=== PATIENT | female | born 1970 | race Caucasian/White ===

== ENCOUNTER → 2017-11-28 | Outpatient (CLI) | payer BC, OTHER ==
--- NOTE | 2017-11-29 09:36 | CT ---
EXAMINATION TYPE: CT soft tissue neck w con DATE OF EXAM: 11/28/2017 HISTORY: Lump on right/anterior side of neck. BB placed on point of interest. COMPARISON: NONE CT DLP: 518 mGycm. Automated Exposure Control for Dose Reduction was Utilized. TECHNIQUE: CT scan of the neck is performed with IV Contrast, patient injected with 100ml mL of Isov ue M300, axial images are obtained, coronal and sagittal reformatted images are reviewed. FINDINGS: A metallic BB is placed at level of palpable abnormality in the right neck axial image 39 submandibul ar level just below hyoid bone and above vocal cords. No worrisome solid or cystic mass or abnormal f luid collection is seen at this level. Airway: There is mild to moderate biapical scarring and bleb formation. Parotid/submandibular glands: Right parotid gland is slightly asymmetrically anteriorly shifted of un certain significance. Submandibular glands are symmetric and unremarkable, inferior portion of right submandibular gland noted at level of palpable abnormality right neck. Carotid/Vascular Structures: No significant plaque or stenosis at the carotid bulb level bilaterally Osseous Structures: There is prominent dextroconvex scoliosis centered in the mid thoracic spine. The re is reversal of normal cervical curvature centered C5-C6 level in the mid to lower cervical spine. There is moderate disc space narrowing and spurring C5-C6 and C6-C7 levels. Other: There are scattered subcentimeter lymph nodes throughout the neck bilaterally. No cyst is grea ter than 1 cm neck adenopathy is identified. IMPRESSION: No suspicious mass, fluid collection, or adenopathy identified in the right neck at leve l of palpable abnormality.
== END | disposition home or self-care (01) ==
LOC: RADCTMAIN 18:27
PROVIDERS: ATTEND Family Medicine
DX: R22.1 Localized swelling, mass and lump, neck (principal)
CPT/HCPCS: 70491; Q9967

== ENCOUNTER → 2018-03-31 | Outpatient (CLI) | payer BC, OTHER ==
--- NOTE | 2018-03-31 13:31 | CT ---
EXAMINATION TYPE: CT lumbar spine wo con DATE OF EXAM: 03/31/2018 1:20 PM COMPARISON: None HISTORY: Herniated lumbar disc per order. Back pain down left leg per patient. CT DLP: 875 mGycm Automated exposure control for dose reduction was used. Unenhanced CT of the lumbar spine was performed. Bone and soft tissue window settings are submitted as well as coronal and sagittal reconstructions. 5 lumbar type vertebra identified. Lumbar spine shows levoconvex scoliosis centered at L3 level witho ut evidence of acute fracture or dislocation. There is moderate disc space narrowing and vacuum disc phenomenon at L5-S1 level. Posterior calcified disc herniation is seen at this level on sagittal imag es. There is additional mild multilevel disc space narrowing with relative sparing of L4-L5 level. Mi nimal multilevel anterior spurring is seen in the mid to lower lumbar spine. Axial images at T12-L1, and L1-L2 levels are felt within normal limits. Axial images at L2-L3 and L3-L4 levels show mild broad disc bulges, there is minimal effacement of an terior thecal sac at L3-L4 level. There is mild right greater than left bilateral anterior inferior n eural foraminal narrowing at L3-L4 level. Axial images at the L4-L5 level show mild facet degenerative changes bilaterally with mild broad-base d posterior disc protrusion, there is minimal effacement of the anterior thecal sac. Bilateral neural foramina are patent. Axial images at L5-S1 level show mild to moderate facet degenerative changes bilaterally. There is le ft paracentral calcified disc protrusion. Spinal canal is preserved. Left-sided neural foramina shows mild to moderate narrowing. Right-sided neural foramen is patent. No suspicious incidental retroperitoneal findings are seen. IMPRESSION: Levoconvex scoliosis with multilevel degenerative changes in the mid to lower lumbar spin e as detailed above, asymmetric left sided sided neural foraminal narrowing noted L5-S1 level due to eccentric disc herniation.
== END ==
LOC: RADCTMAIN 12:49
PROVIDERS: ATTEND Family Medicine
DX: M99.74 Connective tissue and disc stenosis of intervertebral foramina of sacral region (principal); M51.27 Other intervertebral disc displacement, lumbosacral region; M47.817 Spondylosis without myelopathy or radiculopathy, lumbosacral region; M41.87 Other forms of scoliosis, lumbosacral region
CPT/HCPCS: 72131

== ENCOUNTER 2018-12-17 20:24 | Emergency (ER) | payer BC, OTHER ==
[2018-12-17] MEDS ORDERED: DIAZEPAM 5 MG/ML 2 ML INJ IM ONE (21:03)
[2018-12-17] MEDS ORDERED: MORPHINE SULFATE 4 MG/ML SYRINGE IVP STA (21:12)
[2018-12-17] MEDS ORDERED: DIAZEPAM 5 MG/ML 2 ML INJ IVP STA (21:12)
--- NOTE | 2018-12-17 21:16 | ED ---
General Adult HPI - General Chief complaint: Neck Pain/Injury Stated complaint: back injury Time Seen by Provider: 12/17/18 21:00 Source: patient Mode of arrival: ambulatory Limitations: no limitations - History of Present Illness Initial comments: Patient is a 48-year-old female presenting to the emergency department with a chief complaint of back pain. Patient reports on Tuesday she slipped and fell in the bathtub and felt a "crack" in the lower back. 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 Patient reports today she took a Tylenol 3 at 0800. Patient also reports taking energy milligrams of ibuprofen 2 hours ago and it Flexeril at noon. Patient reports another medication is helping with the pain. Patient reports the pain is in the left lumbosacral region and radiates along the posterior aspect of the left leg to the calf. Patient denies any numbness or tingling. Patient denies any saddle paresthesia, urinary or bowel incontinence. No red flecks. - Related Data Home Medications Medication Instructions Recorded Confirmed Ranitidine HCl [Zantac] 150 mg PO BID PRN 08/16/14 12/17/18 Acetaminophen-Codeine 300-30mg 1 tab PO Q6H PRN 12/17/18 12/17/18 [Tylenol w/codeine #3] Cyclobenzaprine [Flexeril] 10 mg PO BID PRN 12/17/18 12/17/18 Previous Rx's Medication Instructions Recorded HYDROcodone/APAP 10-325MG [[place] 1 tab PO Q6HR PRN 3 Days #11 tab 12/17/18 10-325] Allergies Allergy/AdvReac Type Severity Reaction Status Date / Time No Known Allergies Allergy Verified 12/17/18 21:22 Review of Systems ROS Statement: Those systems with pertinent positive or pertinent negative responses have been documented in the HPI. ROS Other: All systems not noted in ROS Statement are negative. Past Medical History Past Medical History: GERD/Reflux Additional Past Medical History / Comment(s): kidney stones History of Any Multi-Drug Resistant Organisms: None Reported Past Surgical History: No Surgical Hx Reported Additional Past Anesthesia/Blood Transfusion Reaction / Comment(s): no family problems w/anesthesia Past Psychological History: No Psychological Hx Reported Smoking Status: Current every day smoker - Past Family History Mother Family Medical History: Cancer General Exam Limitations: no limitations Course Vital Signs 12/17/18 12/17/18 20:42 23:33 Temperature 98.6 F 98 F Pulse Rate 111 H 78 Respiratory 123 H 18 Rate Blood Pressure 123/79 112/77 O2 Sat by Pulse 98 98 Oximetry Medical Decision Making - Medical Decision Making Patient is a 40-year-old female presenting to emergency Department with a chief complaint of back pain. No cauda equina. No red flags. CT of the lumbar spine is indicative of mild spondylitic changes but no acute fractures or dislocations were detected. Patient was given Valium and morphine. Patient reports the pain has decreased to about a 7 and she is able to ambulate although it is still painful. Patient advised to follow-up with activity specialist for further management. Patient will be discharged with less than 3 days of [place]. Patient advised about the potential side effects of medication and side the left [place] paperwork. Strict return parameters were thoroughly discussed with patient reports understanding and agreeable. Case discussed with physician. Disposition Clinical Impression: Low back pain Disposition: HOME SELF-CARE Condition: Stable Instructions (If sedation given, give patient instructions): Low Back Strain (ED), Back Pain (ED) Additional Instructions: Please take prescribed medication as directed. Please follow up with orthopedics. Please return to emergency department if symptoms worsen. Prescriptions: HYDROcodone/APAP 10-325MG [[place] 10-325] 1 tab PO Q6HR PRN 3 Days #11 tab PRN Reason: Pain Is patient prescribed a controlled substance at d/c from ED?: Yes If prescribed controlled substance>3 days was MAPS reviewed?: Prescribed <3 Days Referrals: Morris Hannah MD [Primary Care Provider] - 1-2 days Dimitri Momin MD [STAFF PHYSICIAN] - 1-2 days Time of Disposition: 23:13
--- NOTE | 2018-12-17 22:08 | CT ---
EXAMINATION TYPE: CT lumbar spine wo con DATE OF EXAM: 12/17/2018 9:56 PM COMPARISON: 03/31/2018 HISTORY: PT c/o lower back pain since fall on Tuesday. Pt slipped in bathroom, tweaked her back, said she felt something pop. Pt states she has hx of scoliosis and herniated disc in lumbar region CT DLP: 850.1 mGycm Automated exposure control for dose reduction was used. Unenhanced CT of the lumbar spine was performed. Bone and soft tissue window settings are submitted as well as coronal and sagittal reconstructions. There is a mild lumbar levoscoliosis. Disc spaces are fairly normal. There is vacuum disc at L5-S1. T here is no compression fracture seen. Posterior elements are intact. There is no lumbar paraspinal ma ss. Sacroiliac joints are intact. I see no bony destructive process. There is calcified posterior jaida tral disc herniation at L5-S1 without significant encroachment on the spinal canal. There is no sign of spinal stenosis. IMPRESSION: Mild spondylotic changes. Mild levoscoliosis. No fracture seen. No change compared to old exam.
[2018-12-17 23:34] VITALS: BP 112/77; PULSE 78; RESP 18; TEMP 98
== END 2018-12-17 23:48 | disposition home or self-care (01) ==
LOC: EC 20:24
DX: M54.5 Low back pain (principal); K21.9 Gastro-esophageal reflux disease without esophagitis; F17.200 Nicotine dependence, unspecified, uncomplicated; W01.0XXA Fall on same level from slipping, tripping and stumbling without subsequent striking against object, initial encounter; Y93.E1 Activity, personal bathing and showering; Y92.002 Bathroom of unspecified non-institutional (private) residence as the place of occurrence of the external cause
CPT/HCPCS: 72131; 99283; 96374; 96375; J2270; J3360

== ENCOUNTER → 2018-12-26 | Outpatient (CLI) | payer BC, OTHER ==
--- NOTE | 2018-12-26 16:01 | XR ---
EXAMINATION TYPE: XR chest 2V DATE OF EXAM: 12/26/2018 COMPARISON: 02/23/2012 TECHNIQUE: PA and lateral views submitted. HISTORY: Scoliosis of the spine FINDINGS: The lungs are clear and there is no pneumothorax, pleural effusion, or focal pneumonia. Scoliotic c urvature of the spine. No overt failure. IMPRESSION: 1. No acute process.
[2018-12-26 16:12] LABS: Basophils # (A) 0.1 k/uL (0-0.2); Basophils % (A) 1 %; Eosinophils # (A) 0.1 k/uL (0-0.7); Eosinophils % (A) 1 %; HCT 46.5 % (34.0-46.0); HGB 15.6 gm/dL (11.4-16.0); Lymphocytes # (A) 2.5 k/uL (1.0-4.8); Lymphocytes % (A) 22 %; MCHC 33.5 g/dL (31.0-37.0); MCV 92.7 fL (80.0-100.0); Mean Platelet Volume 7.2; Monocytes # (A) 0.6 k/uL (0-1.0); Monocytes % (A) 6 %; Neutrophils # (A) 7.9 k/uL (1.3-7.7); Neutrophils % (A) 69 %; Platelet Count 280 k/uL (150-450); RBC 5.02 m/uL (3.80-5.40); RDW 14.5 % (11.5-15.5); WBC 11.4 k/uL (3.8-10.6)
[2018-12-26 16:14] LABS: Appearance,Urine Clear (Clear); Bacteria,Urine Rare /hpf; Bilirubin,Urine Negative (Negative); Blood,Urine Small (Negative); Color,Urine Yellow; Glucose,Urine (UA) Negative (Negative); Ketones,Urine Negative (Negative); Leukocyte Esterase,Urine Negative (Negative); Mucus,Urine Rare /hpf; Nitrite,Urine Negative (Negative); Protein,Urine Negative (Negative); RBC,Urine 2 /hpf (0-5); Specific Gravity,Urine 1.017 (1.001-1.035); Squamous Epithelial Cell,Urine 4 /hpf (0-4); Urobilinogen,Urine <2.0 mg/dL (<2.0); WBC,Urine 1 /hpf (0-5)
[2018-12-26 16:21] LABS: African American GFR (CKD) >90 (>60 ml/min/1.73 sqM); Anion Gap 10 mmol/L; Blood Urea Nitrogen 16 mg/dL (7-17); Calcium 10.1 mg/dL (8.4-10.2); Carbon Dioxide 26 mmol/L (22-30); Chloride 103 mmol/L (98-107); Glucose 97 mg/dL (74-99); INR 0.9 (<1.2); Partial Thromboplastin Time 24.2 sec (22.0-30.0); Prothrombin Time 10.2 sec (9.0-12.0); Sodium 139 mmol/L (137-145)
== END | disposition home or self-care (01) ==
LOC: LABPAT 15:19
PROVIDERS: ATTEND Orthopaedic Surgery Orthopaedic Surgery of the Spine
DX: Z01.818 Encounter for other preprocedural examination (principal); M51.27 Other intervertebral disc displacement, lumbosacral region; Z01.812 Encounter for preprocedural laboratory examination
CPT/HCPCS: 36415; 71046; 80048; 81001; 85025; 85610; 85730; 86850; 86900; 86901

== ENCOUNTER 2018-12-27 10:56 | Day surgery (SDC) | payer BC, OTHER ==
[~2018-12-27 10:56] MED LIST: BACITRACIN 50,000 UNIT, POLYMYXIN B 500,000 UNIT in SODIUM CHLORIDE 0.9% IRRIGATIO 1,00... IRRIGATION ONE
[2018-12-27] MEDS ORDERED: LIDOCAINE 1% 20 ML VIAL (10MG/ML) FOR IV START INTRADERMA ONE (11:33)
[2018-12-27] MEDS ORDERED: LACTATED RINGERS 1,000 ML IV ONE ×2 (11:33→14:09)
[2018-12-27] MEDS ORDERED: fentaNYL (PF) 50 MCG/ML 2 ML AMP IV ONE (12:06)
[2018-12-27] MEDS ORDERED: MIDAZOLAM (PF) 2 MG/2 ML VIAL IVP ONE (12:07)
[2018-12-27] MEDS ORDERED: ONDANSETRON 4 MG/2 ML VIAL IVP ONE (12:07)
[2018-12-27] MEDS ORDERED: LIDOCAINE 1% INJ 10MG/ML (20 ML MDV) ONE (12:15)
[2018-12-27] MEDS ORDERED: GLYCOPYRROLATE 0.2 MG/ML 2 ML VIAL ONE (12:15)
[2018-12-27] MEDS ORDERED: PROPOFOL 10 MG/ML 20 ML VIAL IV ONE (12:15)
[2018-12-27] MEDS ORDERED: MIDAZOLAM 2 MG/2 ML VIAL ONE (12:15)
[2018-12-27] MEDS ORDERED: PHENYLEPHRINE-0.9% NACL SYG 1 MG/10 ML SYRINGE ONE (12:15)
[2018-12-27] MEDS ORDERED: SUCCINYLCHOLINE CHLORIDE 100 MG/5 ML SYR IV ONE (12:15)
[2018-12-27] MEDS ORDERED: fentaNYL (PF) 50 MCG/ML 2 ML AMP ONE (12:15)
[2018-12-27] MEDS ORDERED: BUPIVACAIN-EPI 0.25%-1:200,000 30 ML VIAL SQ ONE (13:41)
[2018-12-27] MEDS ORDERED: methylPREDNISolone ACETATE 80 MG/ML 1 ML VIAL INJ ONE (13:41)
[2018-12-27] MEDS ORDERED: THROMBIN (BOVINE) 5,000 UNIT VIAL TOPICAL ONE (13:42)
[2018-12-27] MEDS ORDERED: GELATIN SPONGE,ABSORB (SMALL) 1 EACH SPONGE TOPICAL ONE (13:43)
--- NOTE | 2018-12-27 14:32 | FL ---
EXAMINATION TYPE: FL guidance operating room DATE OF EXAM: 12/27/2018 HISTORY: Flouroscopy time 5 seconds of fluoroscopy provided. IMPRESSION: 1. Fluoroscopy time.
--- NOTE | 2018-12-27 14:33 | XR ---
EXAM TYPE: LUMBAR SPINE X RAY SERIES COMPARISON: NONE HISTORY: Needle placement TECHNIQUE: One intraoperative view submitted FINDINGS: The orthopedic metallic instrument overlying the posterior margin the spinal canal. Exact level diffi cult to determine. IMPRESSION: 1. Intraoperative needle localization.
[2018-12-27] MEDS ORDERED: HYDROmorphone 1 MG/ML 1 ML SYRINGE IVP PRN (15:12)
[2018-12-27] MEDS ORDERED: MAGNESIUM HYDROXIDE 2,400 MG/10 ML CUP PO PRN (15:12)
[2018-12-27] MEDS ORDERED: KETOROLAC 30 MG/ML 1 ML VIAL IVP PRN (15:12)
[2018-12-27] MEDS ORDERED: IBUPROFEN 600 MG TAB PO PRN (15:12)
[2018-12-27] MEDS ORDERED: BENZOCAINE/MENTHOL LOZENG 1 EACH LOZENGE MUCOUS MEM PRN (15:12)
[2018-12-27] MEDS ORDERED: HYDROcodone/APAP 5-325MG 1 EACH TAB PO PRN (15:12)
[2018-12-27] MEDS ORDERED: HYDROmorphone 0.5 MG/0.5 ML SYRINGE IVP PRN (15:12)
[2018-12-27] MEDS ORDERED: ONDANSETRON 4 MG/2 ML VIAL IVP PRN (15:12)
[2018-12-27] MEDS ORDERED: FAMOTIDINE 20 MG TAB PO PRN (15:14)
--- NOTE | 2018-12-27 15:20 | P.OP ---
Date of Procedure: 12/27/18 Preoperative Diagnosis: Left partially radiculopathy, left lower extremity weakness, herniated nucleus pulposis L5-S1, herniated nucleus pulposis L3 4 Postoperative Diagnosis: Same Anesthesia: GETA Pathology: none sent Condition: stable Disposition: PACU Description of Procedure: BRIEF OPERATIVE NOTE Preoperative Diagnosis:Left lower extremity radiculopathy, left lower extremity weakness, herniated nucleus pulposis L5-S1, herniated nucleus pulposis L3 4 Postoperative Diagnosis:Left lower extremity radiculopathy, left lower extremity weakness, herniated nucleus pulposis L5-S1, herniated nucleus pulposis L3 4 Procedure: Laminectomy and decompression L3 4 and L5-S1 Discectomy for decompression L3 4 and L5-S1 Use of fluoroscopic guidance Surgeon: Dr. Fernandez Warehouse Representative: Steve Martin is present throughout the entire the case persistence during positioning, dissection, exposure, visualization, and all crucial elements of the case as well as closure. Anesthesia: General anesthesia Estimated blood loss:Approximately 50 mL Complications: None apparent Components implanted:None Disposition: To recovery room in good stable condition. OPERATIVE INDICATIONS The patient has been having issues in their lower back and lower extremities. She is having excruciating pain down her left lower extremity over the past co uple of weeks has been having weakness at her left thigh. The pain has been down the back of her leg as well as the front of her thigh toward her knee. She has history of issues with her low back with disc degeneration but she has never had severe problems at her left leg like this. She feels she has not had any improvement at all despite aggressive conservative treatment medications relative rest and steroid medication. The patient feels she has had some weakness in her left thigh and has been unable to sleep or get around or work or do any household activities. The patient has been through conservative treatment. we noted significant findings at the L3 4 and L5-S1 disc spaces with lateral disc herniations and foraminal decompression. We discussed the possibility of treating 1 level at L5-S1 where the disc was more collapsed versus the possibility of treating both levels. Upon further discussion today given her symptoms at her left lower extremity and her MRI findings was felt to be worthwhile to approach both levels L3 4 and L5-S1 with surgical intervention for laminectomy decompression and discectomy. We discussed various treatment options including surgery, and the patient wishes to proceed with surgery We discussed the risk, patient's alternatives and benefits of surgery including but not limited to, risk of bleeding risk of infection, risk of need for further s urgery, risk of decreased, loss of motion, loss of function, nerve damage, paralysis, heart attack, blindness and . OPERATIVE SUMMARY After discussing all the risks, patient alternatives and benefits at length, the patient elected to proceed with surgical intervention, signed informed consent, and presented for their procedure. The patient was seen and examined in the preoperative holding area and the surgical site was marked. The patient was given antibiotics and brought to the operating room. The patient was sedated and intubated by anesthesia in standard fashion. The patient was positioned on to the operating room table in a prone position on the appropriate frame which was well-padded and well molded. We were careful to pad any bony prominences and pressure points. We were careful to maintain the patient's cervical spine and good neutral alignment and position throughout. The patient was prepped and draped in a normal standard fashion. An appropriate timeout and keystone protocol performed. We were able to proceed with the surgery. Fluoroscopy was utilized to establish the appropriate level. The local wound area was infiltrated with local anesthetic. An incision was made at the midline longitudinally over the appropriate levels From L3 4 and L5-S1. the patient does have a tattoo at the midline of her lower back which she was aware would be involved with the dissection and incision. Dissection was taken down subcutaneously to the level of the fascia which was split midline. Dissection was taken over the lamina. Intraoperative fluoroscopy was taken which showed a marker at the appropriate level Of L5-S1 as well as L3 4. With the appropriate level positively confirmed, we were able to proceed with laminectomy, First at L5-S1 and then at L3 4. The wound was copiously irrigated and suctioned dry as had been done periodically throughout the case. I performed a laminectomy with a combination of curettes and a high- speed bur and Kerr[place] rongeurs. A small medial facetectomy was performed again further access. A partial foraminotomy was also performed. Portions of the ligamentum flavum were taken down to expose the dura and traversing nerve root. I was able to mobilize the traversing nerve root and gain access to the disc space. Note was made of obvious compression from the disc. Protecting the soft tissue structures, a small annulotomy was established. I was able to perform discectomy and remove any extruded disc fragments and any loose fragments from within the disc itself. There is some disc severe desiccation noted At L5-S1 and moderate desiccation at L34. there were some small disc protrusions and disc fragmentation at L5-S1 with some evidence of calcified disc and cartilage capping causing some stenosis at L5-S1 on the left. This was remedied with the decompression and discectomy. At L3 4 and there seemed to be a large disc under pressure at the far lateral space causing significant foraminal decompression without specific extrusion. After the discectomy was able to remove this large pressurized disc and get excellent relief at the foramen. I tried to preserve the disc annulus that appeared stable At each level. There were no further extruded fragments noted. There is no evidence of dural tear or leak. Good hemostasis maintained. The wound was copiously irrigated and suctioned dry. Good decompression and discectomy was noted. We were able to proceed with closure. The fascia was closed for a watertight closure. The subcuticular tissue was closed with absorbable suture Lining up the tattoo as best as possible. The wound was cleaned and dried and dressed with the appropriate dressing. The drapes were broken down. The patient was gently rolled back onto their hospital bed being careful to maintain their cervical spine and good neutral alignment and position. They were woken up by anesthesia, extubated, and brought to the recovery room in good stable condition. The patient will be admitted to the hospital for observation and for appropriate postoperative care, medical management and monitoring. We will continue to follow them closely about the postoperative course.
[2018-12-27] MEDS: HYDROmorphone 1 MG/ML 1 ML SYRINGE IVP ONE ×2 (15:38→15:44)
[2018-12-27] MEDS ORDERED: diphenhydrAMINE 50 MG/ML 1 ML VIAL IVP ONE (16:06)
[2018-12-27] MEDS: SODIUM CHLORIDE 0.9% 1,000 ML IV SCH (17:32)
[2018-12-27 18:10] VITALS: BMI 27.2
[2018-12-27] MEDS: HYDROcodone/APAP 5-325MG 1 EACH TAB PO PRN ×2 (18:17→23:16)
[2018-12-28] MEDS ORDERED: diphenhydrAMINE 50 MG/ML 1 ML VIAL IVP PRN (01:00)
[2018-12-28] MEDS ORDERED: traMADol 50 MG TAB PO PRN (01:00)
[2018-12-28] MEDS ORDERED: diphenhydrAMINE 50 MG/ML 1 ML VIAL IVP STA (01:05)
[2018-12-28] MEDS: SODIUM CHLORIDE 0.9% 1,000 ML IV SCH (06:09)
[2018-12-28 08:40] VITALS: BP 110/69; PULSE 81; RESP 14; TEMP 98.5
[2018-12-28] MEDS ORDERED: SENNOSIDES-DOCUSATE SODIUM 1 EACH TAB PO SCH (09:00)
--- NOTE | 2018-12-28 09:35 | P.DS ---
Providers Date of admission: 12/27/18 Attending physician: Kaiden Fernandez Primary care physician: [facility] Hospital Course: The patient presented on the day of admission as per their operative note. She had disc herniation at L3 4 and at L5-S1 with severe left lower extremity radicular symptoms and weakness. She was having worsening of her symptoms and after much discussion we decided to proceed with laminectomy decompression with discectomy at L3 4 and L5 S1 as per her operative note. This morning she says her leg feels much better. She says the pain at her leg is significantly improved. She is sore at her back and has been able to move around her remaining go to the bathroom. She is tolerating her diet. She had a little bit of reaction last night with itching from her [place] but is tolerating her tramadol and has tolerated Tylenol 3 as well. The incision is clear Physical Exam The incision site is clean dry and intact. There is no erythema no drainage. There is no purulence no evidence of infection. Abdomen soft and nontender. Chest has good excursion with deep inspiration and expiration. The patient has active and passive range of motion intact at the upper and lower extremities. There is no acute change in neurologic status. Hospital Course Postoperative day #1 status post laminectomy decompression with discectomy L3 4 and L5-S1 of her disc herniation with left lower extremity radiculopathy and weakness. The patient is doing very well postoperatively and has had excellent improvement in her lower extremity symptoms. The patient has been making good progress postoperatively. She has some soreness at her back as expected but is controlling and adequately with medications. They have completed the prophylactic antibiotics without any signs or symptoms of infection. The patient has been able to advance their diet, and is tolerating diet adequately. The pain was initially controlled with IV medications and is now controlled appropriately with oral medications. She had some itching reaction with [place] but is tolerating her Ultram and Tylenol 3 adequately. The patient has been able to increase their mobilization. The patient has progressed appropriately. I think they are in good stable condition for discharge today. They will be sent home with appropriate prescriptions. I answered their questions to the best of my ability in a language that they can understand and they are agreeable with the plan. They will follow up as directed in approximately one week or sooner she's having problems. Patient Condition at Discharge: Good Plan - Discharge Summary New Discharge Prescriptions: New Acetaminophen-Codeine 300-30mg [Tylenol w/codeine #3] 2 tab PO Q6H PRN 3 Days #24 tablet PRN Reason: Pain traMADol HCL [Ultram] 50 mg PO Q4HR PRN 3 Days #18 tab PRN Reason: Pain No Action Ranitidine HCl [Zantac] 150 mg PO BID PRN PRN Reason: gerd Acetaminophen-Codeine 300-30mg [Tylenol w/codeine #3] 1 tab PO Q6H PRN PRN Reason: Pain HYDROcodone/APAP 10-325MG [[place] 10-325] 1 tab PO Q6HR PRN 3 Days #11 tab PRN Reason: Pain Discharge Medication List Ranitidine HCl [Zantac] 150 mg PO BID PRN 08/16/14 [History] Acetaminophen-Codeine 300-30mg [Tylenol w/codeine #3] 1 tab PO Q6H PRN 12/17/18 [History] HYDROcodone/APAP 10-325MG [[place] 10-325] 1 tab PO Q6HR PRN 3 Days #11 tab 12/17/18 [Rx] Acetaminophen-Codeine 300-30mg [Tylenol w/codeine #3] 2 tab PO Q6H PRN 3 Days #24 tablet 12/28/18 [Rx] traMADol HCL [Ultram] 50 mg PO Q4HR PRN 3 Days #18 tab 12/28/18 [Rx] Follow up Appointment(s)/Referral(s): Kaiden Fernandez DO [Doctor of Osteopathic Medicine] - 1 Week Activity/Diet/Wound Care/Special Instructions: Keep site clean. May shower with waterproof Tegaderm intact. Do not soak in a tub. After 72 hours postoperatively, patient May remove dressing and then may shower with area uncovered. Leave Steri-Strips intact and allow them to fray off on their own. May ambulate as tolerated. Avoid heavy or rigorous activity. No repetitive bending twisting or lifting. No overhead work.
== END 2018-12-28 11:23 ==
LOC: OR 10:56 → 4SSUR 15:19 → OR 12-28 11:23
PROVIDERS: ATTEND Orthopaedic Surgery Orthopaedic Surgery of the Spine
DX: M51.16 Intervertebral disc disorders with radiculopathy, lumbar region (principal); Z79.899 Other long term (current) drug therapy; Z97.3 Presence of spectacles and contact lenses; Z72.0 Tobacco use; Z88.5 Allergy status to narcotic agent
CPT/HCPCS: 97161; 81025; 72020; 63030; 63035; J2250 ×2; J1200 ×2; J1040; J0690; J2405; J2001; J3010; J1885; J1170; J2370; J0330; J2704; 86850; 86900; 86901

== ENCOUNTER 2020-04-15 12:07 | Observation (INO) | payer OTHER ==
[2020-04-15] MEDS ORDERED: PANTOPRAZOLE 40 MG TABLET PO PRN (14:30)
[2020-04-15] MEDS: SODIUM CHLORIDE 0.9% 1,000 ML IV SCH (14:54)
[2020-04-15 15:31] LABS: Basophils # (A) 0.1 k/uL (0-0.2); Basophils % (A) 1 %; Eosinophils # (A) 0.1 k/uL (0-0.7); Eosinophils % (A) 2 %; HCT 41.4 % (34.0-46.0); HGB 14.3 gm/dL (11.4-16.0); Lymphocytes % (A) 32 %; MCH 32.3 pg (25.0-35.0); MCHC 34.5 g/dL (31.0-37.0); MCV 93.6 fL (80.0-100.0); Mean Platelet Volume 8.3; Monocytes # (A) 0.3 k/uL (0-1.0); Monocytes % (A) 5 %; Neutrophils # (A) 3.7 k/uL (1.3-7.7); Neutrophils % (A) 59 %; Platelet Count 214 k/uL (150-450); RBC 4.42 m/uL (3.80-5.40); RDW 13.1 % (11.5-15.5); WBC 6.3 k/uL (3.8-10.6)
[2020-04-15 15:44] LABS: ALT 36 U/L (4-34); AST 27 U/L (14-36); African American GFR (CKD) >90 (>60 ml/min/1.73 sqM); Albumin 3.7 g/dL (3.5-5.0); Alkaline Phosphatase 58 U/L (38-126); Anion Gap 4 mmol/L; Blood Urea Nitrogen 15 mg/dL (7-17); Calcium 9.3 mg/dL (8.4-10.2); Carbon Dioxide 28 mmol/L (22-30); Chloride 106 mmol/L (98-107); Glucose 106 mg/dL (74-99); Non-African American GFR(CKD) >90 (>60 ml/min/1.73 sqM); Potassium 4.4 mmol/L (3.5-5.1); Sodium 138 mmol/L (137-145); Total Bilirubin 0.4 mg/dL (0.2-1.3); Total Protein 6.6 g/dL (6.3-8.2)
--- NOTE | 2020-04-15 16:51 | CT ---
EXAMINATION TYPE: CT angio head neck DATE OF EXAM: 04/15/2020 HISTORY: Blurred vision COMPARISON: None. CT DLP: 1435.7 mGycm. Automated Exposure Control for Dose Reduction was Utilized. TECHNIQUE: Noncontrast CT of the brain. CTA scan of the head and neck are performed without and with IV Contrast, patient injected with 65 mL of Isovue 370, axial images are obtained, coronal and sagitt al reformatted images are reviewed. Three-D reconstructed images are created on an independent workst [employer] and reviewed. FINDINGS: Carotid/Vascular Structures: Normal three-vessel origin from the aortic arch. Normal origin right com mon carotid artery from brachiocephalic artery. No significant plaque or stenosis in the common or in ternal carotid arteries bilaterally including carotid bulbs. Patent external carotid arteries bilater ally without significant plaque or stenosis. Codominant vertebrobasilar system patent to the basilar junction. Patent small caliber left posterior communicating artery. Hypoplastic right posterior communicating artery. No significant focal stenosi s or aneurysmal change in the posterior circulation. Images of the anterior circulation show patent s hort segment anterior communicating artery. There is no significant focal stenosis or aneurysmal rojas ge in the anterior circulation. Other: Noncontrast CT brain shows no acute intracranial hemorrhage or midline shift. Wild-white matte r differentiation is maintained. Ventricles and sulci within normal limits in size for patient's age. The calvarium is intact. Mild emphysematous change in visualized lung apices. IMPRESSION: No significant stenosis or plaque in the carotid arteries bilaterally. No significant st enosis or aneurysm at the level of the tunica-biloxi of [place].
[2020-04-15] MEDS: ACETAMINOPHEN TAB 325 MG TAB PO PRN (17:25)
--- NOTE | 2020-04-15 18:00 | XR ---
EXAMINATION TYPE: XR chest 2V DATE OF EXAM: 04/15/2020 COMPARISON: Chest x-ray December 26, 2018 HISTORY: COPD. TECHNIQUE: Frontal and lateral views of the chest are obtained. FINDINGS: There is patchy left greater than right bibasilar opacities. No pleural effusion or pneumo thorax seen bilaterally. The cardiac silhouette size is stable and within normal limits. Underlying d extroconvex scoliosis mid to lower thoracic spine redemonstrated. IMPRESSION: Possible left greater than right patchy bibasilar acute atelectasis and/or infiltrate.
--- NOTE | 2020-04-15 19:41 | CONS ---
CONSULTATION CHIEF COMPLAINT: A week ago this patient developed a zigzag line followed by a broken line in the zigzag line in the periphery of her left vision. This lasted for 10 minutes. This was followed by a little bit of a headache. This happened 20 minutes later in the same area and lasted for another 5 to 7 minutes. Since then she never developed any other problems. MEDICAL HISTORY: Reviewed. The patient is not diabetic and not hypertensive. No ocular surgery. EYE EXAMINATION: Vision with reading glasses 20/30 right eye and 20/25 left eye. Extraocular motility full. Pupils were equal and reactive. Intraocular pressure was 15 mmHg right eye and 19 mmHg left eye. Confrontation was normal in all 4 quadrants. Lids, external eye examination was normal. Retinal examination was postponed until angle is checked in the office. ASSESSMENT: 1. Ocular migraine. 2. Visual disturbance. PLAN: The patient needs to be seen in the office soon, within the next day or two upon discharge for visual field full retina examination and angle evaluation. I am not concerned with any acute problem because this happened a week ago with ocular phenomena which improved on the same day, and she has been feeling well since then without any recurrent visual complaint. I would appreciate if she books an appointment sometime within the next few days on her discharge. CT scan was performed and I will be checking it. MMODL / IJN: [id number] /
[2020-04-16] MEDS: SODIUM CHLORIDE 0.9% 1,000 ML IV SCH (07:48)
[2020-04-16] MEDS: ACETAMINOPHEN TAB 325 MG TAB PO PRN (07:53)
[2020-04-16 08:22] VITALS: PULSE 70; RESP 16
[2020-04-16] MEDS ORDERED: MULTIVITAMINS, THERA 1 EACH TAB PO SCH (09:00)
[2020-04-16] MEDS ORDERED: CHOLECALCIFEROL 1,000 UNIT TAB PO SCH (09:00)
--- NOTE | 2020-04-16 11:52 | P.CNNES ---
History of Present Illness Consult date: 04/16/20 Requesting physician: Morris Hannah Reason for Consult: Blurry vision History of Present Illness: Patient is a 50-year-old female, with history of tobacco use otherwise healthy, states that on 04/08/2020 at around 9-10 PM she was wrapping gifts, when she had an episode in which she felt a kaleidoscope-type sensations in the left eye. She felt hot, sat down, and also noticed zigzag colored patterns in the vision. She couldn't focus. The symptoms went away after 10-15 minutes. She was fine for about another 10 minutes, but the symptoms came back and lasted for another 15-20 minutes. The kaleidoscope-type sensation went away but she had persistent blurred vision, which has not gone away since then. It involves both eyes, but patient feels right eye is worse than the left. Since then she has noticed that she feels like she wants to have glasses although she never required it before. She denies any facial droop, slurred speech or any other symptoms associated with this spell. Her vital signs on arrival was blood pressure 142/81, pulse rate 90, temperature 98.0. On blood test, CBC and Chem-20 is normal, ALT is borderline 36. CTA of head and neck showed no significant stenosis or plaque in the carotid arteries bilaterally. No significant stenosis or aneurysm at the level of [place] of [place]. chest x-ray showed possible left greater than right patchy bibasilar acute atelectasis and/or infiltrate. Patient states that about a week prior to this visual symptoms (around early part of April 2020), patient had a near syncopal spell. She was at work, went to store at lunch hour to buy something. She was standing when all of a sudden, she felt her blood pressure was high, felt dizzy woozy like will pass out. She felt weak, and wanted to sit down. She went back to the car and drove to work. She had her coworker checked her blood pressure was 194/90. The blood pressure slowly started improving during the day and since then the blood pressure has been normal. She denies any history of hypertension, only one spike of high blood pressure that day. Patient denies hypertension or diabetes. She has smoked half pack per day since age 18. Does not drink. Patient denies any history of migraines. Patient does not take any blood thinners or aspirin. She does take omeprazole multivitamins and vitamin D. Patient states that her sister had a stroke 2 years ago which affected her vision. Review of Systems As mentioned above in detail. All other review of systems completely unremarkable. Denies any chest pain shortness of breath wheezing or cough. Denies abdominal pain nausea vomiting diarrhea. Past Medical History Past Medical History: GERD/Reflux Additional Past Medical History / Comment(s): kidney stones History of Any Multi-Drug Resistant Organisms: None Reported Past Surgical History: No Surgical Hx Reported, Back Surgery Additional Past Surgical History / Comment(s): LITHOTRIPSY, CYSTOSCOPY, back surgery nov- disectomy and laminectomy Past Anesthesia/Blood Transfusion Reactions: No Reported Reaction Additional Past Anesthesia/Blood Transfusion Reaction / Comment(s): no family problems w/anesthesia Past Psychological History: No Psychological Hx Reported Smoking Status: Current every day smoker Past Alcohol Use History: Occasional Past Drug Use History: None Reported - Past Family History Mother Family Medical History: Cancer Medications and Allergies Home Medications Medication Instructions Recorded Confirmed Type Cholecalciferol [Vitamin D3 (25 1,000 unit PO DAILY 04/15/20 04/15/20 History Mcg = 1000 Iu)] Multivitamins, Thera [Multivitamin 1 tab PO DAILY 04/15/20 04/15/20 History (formulary)] Omeprazole [PriLOSEC] 20 mg PO DAILY PRN 04/15/20 04/15/20 History Allergies Allergy/AdvReac Type Severity Reaction Status Date / Time No Known Allergies Allergy Unverified 04/15/20 13:21 Physical Examination - Vital Signs Vital Signs: Vital Signs Temp Pulse Resp BP Pulse Ox 04/16/20 08:22 70 16 04/16/20 07:45 97.9 F 70 16 101/67 95 04/16/20 03:25 97.9 F 68 18 105/67 97 04/15/20 22:40 98 F 70 18 105/65 96 04/15/20 15:00 90 16 04/15/20 13:35 90 16 04/15/20 12:30 98.0 F 90 16 142/81 98 Intake and Output 04/15/20 04/16/20 04/16/20 22:59 06:59 14:59 Intake Total 300 200 Balance 300 200 Intake: Oral 300 200 Other: Voiding Method Toilet Toilet # Voids 2 On examination patient is a middle aged female, in no acute distress. Patient is alert awake oriented to time place and person. Speech and language functions are normal. Attention and concentration fund of knowledge is adequate. On cranial nerve examination pupils are round and reactive to light, visual castillo are full on confrontation in both eyes, with no neglect on double simultaneous stimulation on either side. Face is symmetric, tongue protrudes to the midline. Palatal elevation and sensation normal, hearing and shoulder shrug normal. Facial sensation is normal. On muscle strength testing there is mild right pronation but no drift. The strength is completely normal in the arms and legs distally and proximally reflexes are 3 in the upper limbs, 2+ at the knees, 2 at ankles and plantar is questionable upon the right whereas down on left. Sensory touch is equal. No ataxia for [id number] testing tone and bulk of muscles normal. Gait deferred. There is no obvious bruit, S1 and S2 audible, chest is clear, abdomen soft nontender. Peripheral pulses present. No peripheral edema. Results - Laboratory Findings CBC and BMP: 04/15/20 14:44 04/15/20 14:44 Abnormal Lab Findings: Abnormal Labs 04/15/20 14:44 Glucose 106 H ALT 36 H Assessment and Plan Assessment: * 50-year-old female, with 2 episodes of colorful kaleidoscope-type visual disturbance on 04/08/2020, each lasting for 10 minutes, whereas the second episode was followed by persistent blurred vision (right more than left). Her examination reveals normal visual castillo and cranial nerves. She may have mild right pronation but no drift. Computed tomography scan of the head showed no acute process. CTA of head and neck showed no significant stenosis. Patient has been seen by knitted cloth examiner, who felt was a retinal migraine. Patient denies any previous history of migraines. * Hypertension * Tobacco use, half pack per day since age 18. Plan: * MRI of the brain to rule out CVA. * Suggest starting aspirin 81 mg daily for stroke prevention. * Fasting lipid panel, hemoglobin A1c. * ESR, CRP. * If above test negative, then may discharge and follow up with knitted cloth examiner as an outpatient. * Tobacco cessation.
[2020-04-16] MEDS ORDERED: ASPIRIN 81 MG PO SCH (12:00)
[2020-04-16] MEDS ORDERED: LORazepam 2 MG/ML INJ IV STA (12:21)
[2020-04-16] MEDS ORDERED: LORazepam 2 MG/ML INJ IV PRN (12:22)
--- NOTE | 2020-04-16 14:09 | MR ---
EXAMINATION TYPE: MR brain wo con DATE OF EXAM: 04/16/2020 COMPARISON: CTA head and neck from yesterday HISTORY: Blurred vision, visual disturbance, possible CVA. TECHNIQUE: Multiplanar, multisequence imaging of the brain and brainstem is performed without IV cont rast. FINDINGS: Exam slightly suboptimal inspiration unable to hold still. Diffusion weighted images demonstrate no evidence of a recent infarct or other diffusion abnormality. There is no extraaxial fluid collection or significant white matter signal abnormality. The ventricu lar system and cisternal spaces are normal in size and appearance. The brain volume is age appropria te. Midline structures demonstrate normal morphology. The craniocervical junction appears within normal limits. Normal vascular flow voids are present. The visualized sinuses are clear and the globes are i ntact. IMPRESSION: No MRI evidence for recent infarct. Motion artifact degradation without suspicious abnorm ality clearly seen.
[2020-04-16 14:44] VITALS: BP 109/73; TEMP 98
--- NOTE | 2020-04-16 16:37 | HP ---
HISTORY AND PHYSICAL This is a 50-year-old white female who came in with a 3-day history of severe blurred vision, atypical in nature, with lightheadedness and dizziness. She was admitted with TIA versus stroke. She noticed zigzag vision. She has no history of migraine. She could not focus. That happened multiple times during the day. It lasted 10-15 minutes. Kaleidoscope type appearance of her blurred vision. She was admitted for TIA versus CVA. Denied any facial droop or weakness with her arms and legs or migraines. CT of the head and neck and MRI ordered. Neurology consult. HOME MEDICINES: Multivitamin, Prilosec over the counter Past medical history is negative except for nicotine addiction and 30-pound weight gain in the last year. Otherwise, 14-point review of systems is negative. History of renal stones, lithotripsy, cystoscopy, discectomy, laminectomy for chronic back . Current everyday smoker. VITAL SIGNS: Temperature 97.9, pulse 70s to 80s, respiratory rate 16 to 18, blood pressure low 100s over 60s to 80s. CARDIOVASCULAR: S1, S2. LUNGS: Decreased breath sounds x4. HEMATOLOGY: Negative Homans. GI: Distended due to obesity. Sugar is 106. LFTs 36. MRI is going to be ordered as well as ophthalmologic and neurology MRI and MRA or CTA to make sure she is okay to rule out CVA. Start aspirin to prevent strokes. Do A1c and lipid panel. Please see further orders. Baseline hypertension, nicotine addiction. Smoking cessation. Possible blood pressure medicines. MMODL / IJN: [id number] /
[2020-04-16 21:37] LABS: Hemoglobin A1C 5.3 % (4.0-6.0)
== END 2020-04-16 16:38 | disposition home or self-care (01) ==
LOC: 1SOBS 12:15
PROVIDERS: ADMIT Family Medicine; ATTEND Family Medicine
DX: H53.8 Other visual disturbances (principal); R42 Dizziness and giddiness; R03.0 Elevated blood-pressure reading, without diagnosis of hypertension; K21.9 Gastro-esophageal reflux disease without esophagitis; F17.210 Nicotine dependence, cigarettes, uncomplicated; R63.5 Abnormal weight gain; Z68.28 Body mass index [BMI] 28.0-28.9, adult; Z79.899 Other long term (current) drug therapy; Z87.442 Personal history of urinary calculi; Z98.890 Other specified postprocedural states; Z82.3 Family history of stroke; Z80.9 Family history of malignant neoplasm, unspecified
CPT/HCPCS: 96374; 80053; 85652; 85025; 86140; 83036; 71046; 70496; 70498; 70551; G0378 ×2; G0379; J2060; Q9967

== ENCOUNTER → 2020-08-18 | Outpatient (CLI) | payer OTHER ==
--- NOTE | 2020-08-18 17:30 | XR ---
MR cervical spine HISTORY: Pain and stiffness 6 views of the cervical spine Oblique images are not optimal to evaluate foraminal encroachment. There is a thoracic scoliosis susp ected. Multilevel spondylosis is present. There is reversal the normal cervical lordosis. Prevertebra l soft tissues are normal. Loss of disc height greatest at C4-5, C5-6 and C6-7. Cervical vertebral june dies show preserved height and bone mineralization. IMPRESSION: Degenerative disc disease. Reversed cervical lordosis. Cervical MRI may be of benefit. Mc spect thoracic scoliosis.
== END | disposition home or self-care (01) ==
LOC: RADXRMAIN 16:15
PROVIDERS: ATTEND Family Medicine
DX: M47.812 Spondylosis without myelopathy or radiculopathy, cervical region (principal)
CPT/HCPCS: 72050

== ENCOUNTER → 2021-05-05 | Outpatient (CLI) | payer OTHER ==
--- NOTE | 2021-05-05 14:43 | XR ---
Limited cervical spine HISTORY: Neck pain 3 views the cervical spine correlated to prior exam 08/18/2020 There is no significant interval change. Cervical ribs are present. Thoracic scoliosis is present. Th ere is reversal the normal cervical lordosis. Multilevel spondylosis is present, loss of disc height is present at C4-5 and C5-6 and C6-7, cervical vertebral bodies show preserved height and bone minera lization. Prevertebral soft tissues are normal. Facet arthropathy changes are again noted. IMPRESSION: Degenerative disc disease, reversal cervical lordosis, spinal curvature, facet arthropath y similar to prior exam.
== END | disposition home or self-care (01) ==
LOC: RADXRMAIN 10:19
PROVIDERS: ATTEND Family Medicine
DX: M47.892 Other spondylosis, cervical region (principal); M50.30 Other cervical disc degeneration, unspecified cervical region; M43.8X2 Other specified deforming dorsopathies, cervical region; M40.40 Postural lordosis, site unspecified
CPT/HCPCS: 72040

== ENCOUNTER 2021-06-03 09:47 | Observation (INO) | payer OTHER ==
[2021-05-28 15:20] VITALS: BMI 30.2
[~2021-06-03 09:47] MED LIST changes: -BACITRACIN 50,000 UNIT, POLYMYXIN B 500,000 UNIT in SODIUM CHLORIDE 0.9% IRRIGATIO 1,00... IRRIGATION ONE; +DEXAMETHASONE SOD PHOSPHATE 4 MG/ML 1 ML VIAL IV ONE; +HYDROmorphone 0.5 MG/0.5 ML SYRINGE IVP PRN; +ONDANSETRON 4 MG/2 ML VIAL IVP ONE; +ceFAZolin 1,000 MG in SODIUM CHLORIDE 0.9% IRRIGATIO 1,000 ML IRRIGATION PRN
[2021-06-03] MEDS: LACTATED RINGERS 1,000 ML IV SCH (10:29)
[2021-06-03] MEDS ORDERED: PHENYLEPHRINE-0.9% NACL SYG 1,000 MCG/10 ML SYRINGE ONE (10:31)
[2021-06-03] MEDS ORDERED: PROPOFOL 10 MG/ML 20 ML VIAL IV ONE (10:31)
[2021-06-03] MEDS ORDERED: MIDAZOLAM 2 MG/2 ML VIAL ONE (10:31)
[2021-06-03] MEDS ORDERED: SUCCINYLCHOLINE CHLORIDE 100 MG/5 ML SYR IV ONE (10:31)
[2021-06-03] MEDS ORDERED: fentaNYL (PF) 50 MCG/ML 2 ML AMP ONE (10:31)
[2021-06-03] MEDS ORDERED: GLYCOPYRROLATE 0.2 MG/ML 2 ML VIAL ONE (10:31)
[2021-06-03] MEDS ORDERED: NEOSTIGMINE 1 MG/ML 10 ML VIAL ONE (10:31)
[2021-06-03] MEDS ORDERED: ROCURONIUM 10 MG/ML (5 ML VIAL) IV ONE (10:31)
[2021-06-03] MEDS ORDERED: THROMBIN (BOVINE) 5,000 UNIT VIAL TOPICAL ONE (10:35)
[2021-06-03] MEDS ORDERED: GELATIN SPONGE,ABSORB (LARGE) 1 EACH SPONGE TOPICAL ONE (10:35)
[2021-06-03] MEDS ORDERED: LIDOCAINE 0.5%-EPI 1:200,000 50 ML VIAL SQ ONE (10:35)
[2021-06-03] MEDS ORDERED: LACTATED RINGERS 1,000 ML IV ONE (12:58)
[2021-06-03] MEDS ORDERED: ACETAMINOPHEN TAB 325 MG TAB PO PRN (13:04)
[2021-06-03] MEDS ORDERED: ONDANSETRON 4 MG/2 ML VIAL IVP PRN (13:04)
[2021-06-03] MEDS ORDERED: CYCLOBENZAPRINE 10 MG TAB PO PRN (13:05)
[2021-06-03] MEDS ORDERED: Acetaminophen-Codeine 300-30mg TAB PO PRN ×2 (13:05→13:06)
--- NOTE | 2021-06-03 13:12 | P.OP ---
Date of Procedure: 06/03/21 Preoperative Diagnosis: Herniated nucleus pulposis C4 5 C5 6 C6 7, cervical stenosis C4 5 C5 6 C6 7, right upper extremity radiculopathy, right upper extremity weakness, neck pain, cervical kyphosis, degenerative disc disease Postoperative Diagnosis: Same Anesthesia: GETA Pathology: none sent Condition: stable Disposition: PACU Description of Procedure: BRIEF OPERATIVE NOTE Preoperative Diagnosis:Herniated nucleus pulposis C4 5 C5 6 C6 7, cervical stenosis C4 5 C5 6 C6 7, right upper extremity radiculopathy, right upper extremity weakness, neck pain, cervical kyphosis, degenerative disc disease Postoperative Diagnosis: Procedure: Anterior cervical decompression and fusion Placement of interbody graft Application of anterior cervical plate Surgeon: Dr. Fernandez Tour Actor: Steve Martin is present throughout the entire the case persistence during positioning, dissection, exposure, visualization, and all cru cial elements of the case as well as closure. Anesthesia: General anesthesia Gen. per Dr. Dr. Maria Estimated blood loss: Approximately 100 mL Complications: None apparent Components implanted: K2M Treichlers anterior cervical plate system with Vikos interbody allograft bone graft and 1 mL of DBX bone putty Disposition: To recovery room in good stable condition. OPERATIVE INDICATIONS The patient has had long-standing issues in their neck and upper extremities. The patient had severe worsening in pain at her right upper extremity over C5 distribution over the past couple of months. She is having excruciating pain and difficulty with any activities including work. She is having significant debility due to her pain on a distribution at C45 which correlated well with her symptoms as well as severe changes at C5 6 and C6 7 with stenosis which further correlated with many of her symptoms. The patient has been through conservative treatment. We discussed various treatment options including surgery, and the patient wishes to proceed with surgery We discussed the risk, patient's alternatives and benefits of surgery including but not limited to, risk of bleeding risk of infection, risk of need for further surgery, risk of decreased, loss of motion, muscle function, malunion nonunion, hardware failure, nerve damage, paralysis, heart attack, and . OPERATIVE SUMMARY After discussing all the risks, patient alternatives and benefits at length, the patient elected to proceed with surgical intervention, signed informed consent, and presented for their procedure. The patient was seen and examined in the preoperative holding area and the surgical site was marked. The patient was given antibiotics and brought to the operating room. The patient was positioned on the operating room table in a supine position being careful to pad any bony prominences and pressure points. The patient was sedated and intubated by anesthesia in standard fashion. Once the airway and C- spine were stabilized the patient's arms were padded and tucked at her side, with her shoulders gently taped. The head was placed in a donut pad with the neck in good neutral alignment and position. We were careful to maintain the patient's cervical spine and good neutral alignment and position throughout. The patient was prepped and draped in a normal standard fashion. An appropriate timeout and keystone protocol performed. We were able to proceed with the surgery. The local wound area was infiltrated with local anesthetic. An incision was made transversely approximately 2-1/2 cm over the appropriate levels at C6. Dissection was taken down subcutaneously to the level of the platysma which was split in line with its fibers. Dissection was taken with a carotid approach, with the trachea and esophagus medial and the carotid sheath laterally. We dissected down to the anterior surface of the vertebral bodies at C45 C5 6 and C6 7. Intraoperative x-ray was taken which showed a marker at the appropriate level at C5 6. With the appropriate level positively confirmed, we were able to proceed with discectomy at the appropriate levels starting at C 45 and then removing the 56 and C6 7. The patient had significant osteophyte formation C5 6 and C6 7 with cervical kyphosis. All of the operative levels were exposed appropriately. The patient had all their twitches back, and there was no evidence of recurrent laryngeal issue. The wound was copiously irrigated and suctioned dry as had been done periodically throughout the case. At the appropriate level/levels, starting at C4 5 and then moving the C5 6 and C6 I established an annulotomy with an 11 blade scalpel. A discectomy was performed with a combination of pituitary rongeurs, curettes, a high-speed bur, and Kerrison rongeurs. The posterior longitudinal ligament was taken down as were any posterior osteophytes. This gave good central and bilateral foraminal decompression. There is no evidence of any dural tear or leak. The endplates were prepared with a high-speed bur. With the endplates in good parallel position, I was able to size for the appropriate size interbody graft. The wound was irrigated and suctioned dry the graft was prepared and malleted into position. It had good alignment and position with the anterior surface flush with the anterior surface of the vertebral bodies. This was done similarly the appropriate levels. With the grafts intact, I was able to measure and contour and appropriate sized plate. The plate was positioned at the midline over the appropriate levels. Screw holes were established with a hand drill and drill guide. Screws were placed in good alignment and position with excellent bony purchase. We were able to get some reduction of the cervical kyphosis to more neutral position. The screws were tightened and They were seated under the locking device. The construct was checked and found to be stable. Intraoperative x-ray was taken which showed good alignment and position of the implants at the appropriate levels. There was no evidence of any dural tear or leak. Good hemostasis was maintained. The wound was copiously irrigated and suctioned dry as had been done periodically throughout the case. The platysma was closed with absorbable suture. The subcutaneous tissue was closed. The subcuticular tissue was closed with absorbable suture. The wound was cleaned and dried and dressed appropriately. A soft cervical collar was placed appropriately. The patient was woken up by anesthesia, extubated, transferred back gently to their hospital bed and brought to the recovery room in good stable condition. The patient will be admitted to the hospital for appropriate postoperative care, medical management and monitoring. We will continue to follow them closely about the postoperative course.
--- NOTE | 2021-06-03 14:17 | XR ---
Cervical spine HISTORY: Needle placement Single lateral view of the cervical spine submitted and correlated prior exam 05/05/2021 End[address] tube is in place. Lower cervical spine is not included on exam. There is a needle presen t at intervertebral disc level of C5-6. There is underlying spondylosis, loss of disc at C4-5 and C5- 6, C6-7 as on prior, kyphosis is again noted. There are overlying artifacts. IMPRESSION: Orthopedic localization.
--- NOTE | 2021-06-03 14:24 | XR ---
Cervical spine Limited HISTORY: Hardware placement Single lateral view the cervical spine submitted and correlated prior exam and same dated earlier batsheva e Endotracheal tube is in place. Patient is status post anterior cervical fusion and discectomy at C4-C 7. Intervertebral spacing blocks are present. Lower cervical spine is not well seen. There is anatomi c alignment within limitations of the exam. IMPRESSION: Orthopedic follow-up
[2021-06-03] MEDS: CYCLOBENZAPRINE 10 MG TAB PO PRN (14:50)
[2021-06-03] MEDS: BENZOCAINE/MENTHOL LOZENG 1 EACH LOZENGE MUCOUS MEM PRN (14:53)
[2021-06-03] MEDS: HYDROmorphone 0.5 MG/0.5 ML SYRINGE IVP PRN ×3 (14:57→23:38)
[2021-06-03] MEDS: SODIUM CHLORIDE 0.9% 1,000 ML IV SCH (14:58)
[2021-06-04] MEDS: SODIUM CHLORIDE 0.9% 1,000 ML IV SCH ×2 (03:43→16:29)
[2021-06-04] MEDS: HYDROmorphone 0.5 MG/0.5 ML SYRINGE IVP PRN ×3 (03:45→11:52)
[2021-06-04] MEDS: CYCLOBENZAPRINE 10 MG TAB PO PRN ×3 (08:07→21:08)
[2021-06-04] MEDS: traMADol 50 MG TAB PO PRN ×3 (09:19→21:08)
[2021-06-04] MEDS: LACTATED RINGERS 1,000 ML IV SCH (10:01)
--- NOTE | 2021-06-04 11:37 | P.DS ---
Providers Date of admission: 06/04/21 00:07 Attending physician: Kaiden Fernandez Primary care physician: [facility] Course: The patient presented on the day of admission as per their operative note. She had significant disc herniation with stenosis C45 C5 6 C6 7 with severe right upper extremity radiculopathy and weakness and underwent anterior cervical decompression with discectomy and fusion as per her operative note. She feels her arm is doing much better. She is very relieved that her right upper extremity. She is having significant pain around her anterior neck and difficulty with swallowing.. Physical Exam The incision site is clean dry and intact. There is no erythema no drainage. There is no purulence no evidence of infection. Her neck is soft and supple Abdomen soft and nontender. Chest has good excursion with deep inspiration and expiration. The patient has active and passive range of motion intact at the upper and lower extremities. There is no acute change in neurologic status.She has good motion at her right upper extremity Hospital Course postoperative day #1 status post anterior cervical decompression with discectomy and fusion C4 5 C5 6 C6 7 for her disc herniation with severe stenosis and right upper extremity radiculopathy. Patient is making good progress in terms of her neurologic status and right upper extremity. The patient has been making good progress postoperatively. she is still having some trouble with her swallowing and her pain control. They have completed the prophylactic antibiotics without any signs or symptoms of infection. The patient has not been able to advance their dietpassed having some popsicles thus far as well as water. The pain was initially controlled with IV medications and is now trying to transfer to oral medications for her pain The patient has been able to increase their mobilization. The patient has progressed somewhat slowly. I think they may be in stable condition for discharge today, if she is able to tolerate oral intake better and her pain is more controlled with oral medications. They will be sent home with appropriate prescriptions. I answered their questions to the best of my ability in a language that they can understand and they are agreeable with the plan. if she is not able to do these things. May have to keep her overnight. Hopefully she'll be able to make further progress today and be discharged home later this afternoon. They will follow up as directed. Patient Condition at Discharge: Fair Plan - Discharge Summary Discharge Rx Participant: Yes New Discharge Prescriptions: New Acetaminophen-Codeine 300-30mg [Tylenol w/codeine #3] 1 tab PO Q6H PRN 3 Days #12 tablet PRN Reason: Pain No Action Cyclobenzaprine [Flexeril] 10 mg PO TID PRN PRN Reason: Muscle Spasm Acetaminophen-Codeine 300-30mg [Tylenol w/codeine #3] 1 tab PO Q8H PRN PRN Reason: Pain Discharge Medication List Acetaminophen-Codeine 300-30mg [Tylenol w/codeine #3] 1 tab PO Q8H PRN 05/28/21 [History] Cyclobenzaprine [Flexeril] 10 mg PO TID PRN 05/28/21 [History] Acetaminophen-Codeine 300-30mg [Tylenol w/codeine #3] 1 tab PO Q6H PRN 3 Days #12 tablet 06/03/21 [Rx]
[2021-06-04] MEDS: HYDROmorphone 1 MG/ML 1 ML SYRINGE IVP PRN ×2 (16:25→21:10)
[2021-06-04 21:26] VITALS: RESP 16
[2021-06-05 04:15] VITALS: BP 137/80; PULSE 86; TEMP 98.3
[2021-06-05] MEDS: traMADol 50 MG TAB PO PRN (06:15)
[2021-06-05] MEDS: CYCLOBENZAPRINE 10 MG TAB PO PRN (06:15)
[2021-06-05] MEDS: SODIUM CHLORIDE 0.9% 1,000 ML IV SCH (06:17)
[2021-06-05] MEDS: BENZOCAINE/MENTHOL LOZENG 1 EACH LOZENGE MUCOUS MEM PRN (06:18)
[2021-06-05] MEDS ORDERED: methylPREDNISolone SOD SUCCI 40 MG/ML 1 ML VIAL IV STA (08:06)
--- NOTE | 2021-06-05 08:12 | P.DS ---
Providers Date of admission: 06/04/21 00:07 Attending physician: Kaiden Fernandez Primary care physician: [facility] Hospital Course: The patient presented on the day of admission as per their operative note. She underwent anterior cervical decompression with discectomy and fusion C4 5 C5 6 C6 7 for her cervical stenosis with disc herniation upper extremity radiculopathy and neck pain. She feels her right arm is doing much better. She still having significant trouble with her swallowing. Her pain is slightly better controlled and she is trying to manage with oral medications this morning. She's been up and about she is voiding freely. She is only tolerating very small sips of smoothy and fluids. Physical Exam The incision site is clean dry and intact. There is no erythema no drainage. There is no purulence no evidence of infection. Her neck is soft and supple. There is no significant inflammation were ecchymosis or swelling. Abdomen soft and nontender. Chest has good excursion with deep inspiration and expiration. The patient has active and passive range of motion intact at the upper and lower extremities. There is no acute change in neurologic status. She is good motion throughout her right upper extremity Hospital Course Postoperative day #2 status was anterior cervical decompression with discectomy and fusion C4 5 C5 6 C6-C7 for disc herniation with stenosis and upper extremity radiculopathy. Patient's extremities are doing very well but she still having significant pain at her surgical site and difficulty with swallowing. The patient has been making somewhat slow progress postoperatively in terms of her swallowing and her pain but doing quite well in terms of her right upper extremity symptomatology. They have completed the prophylactic antibiotics without any signs or symptoms of infection. The patient has been able to advance their diet only very mildly, but is tolerating some thick liquids. The pain was initially controlled with IV medications and is now controlled appropriately with oral medications. The patient has been able to increase their mobilization. The patient has progressed appropriately other than her swallowing and I think that she could have some benefit with a dose of steroid as well as a short course of tapering steroid. I think they are in good stable condition for discharge today as long as she can continue to control her pain with oral medications and swallow some foods or thick liquids. They will be sent home with appropriate prescriptions. I answered their questions to the best of my ability in a language that they can understand and they are agreeable with the plan. They will follow up as directed. Patient Condition at Discharge: Fair Plan - Discharge Summary Discharge Rx Participant: Yes New Discharge Prescriptions: New methylPREDNISolone Dose Pack [Medrol Dose Pack] 4 mg PO DIRECTED #1 packet Acetaminophen-Codeine 300-30mg [Tylenol w/codeine #3] 1 tab PO Q6H PRN 3 Days #12 tablet PRN Reason: Pain No Action Cyclobenzaprine [Flexeril] 10 mg PO TID PRN PRN Reason: Muscle Spasm Acetaminophen-Codeine 300-30mg [Tylenol w/codeine #3] 1 tab PO Q8H PRN PRN Reason: Pain Discharge Medication List Acetaminophen-Codeine 300-30mg [Tylenol w/codeine #3] 1 tab PO Q8H PRN 05/28/21 [History] Cyclobenzaprine [Flexeril] 10 mg PO TID PRN 05/28/21 [History] Acetaminophen-Codeine 300-30mg [Tylenol w/codeine #3] 1 tab PO Q6H PRN 3 Days #12 tablet 06/03/21 [Rx] methylPREDNISolone Dose Pack [Medrol Dose Pack] 4 mg PO DIRECTED #1 packet 06/05/21 [Rx] Follow up Appointment(s)/Referral(s): Kaiden Fernandez DO [Doctor of Osteopathic Medicine] - 06/12/21 8:45 am Activity/Diet/Wound Care/Special Instructions: Keep site clean. May shower with waterproof Tegaderm intact. Do not soak in a tub. After 72 hours postoperatively, patient May remove dressing and then may shower with area uncovered. Leave glue intact and allow it to fray off on its own. May ambulate as tolerated. Avoid heavy or rigorous activity. No repetitive bending twisting or lifting. No overhead work. Discharge Disposition: HOME SELF-CARE
[2021-06-05] MEDS: LACTATED RINGERS 1,000 ML IV SCH (08:37)
== END 2021-06-05 11:30 | disposition home or self-care (01) ==
LOC: OR 09:47 → 5NMEDONC 13:01 → OR 06-04 00:07 → 5NMEDONC 06-04 00:07
PROVIDERS: ADMIT Orthopaedic Surgery Orthopaedic Surgery of the Spine; ATTEND Orthopaedic Surgery Orthopaedic Surgery of the Spine
DX: M50.221 Other cervical disc displacement at C4-C5 level (principal); M51.27 Other intervertebral disc displacement, lumbosacral region; M48.02 Spinal stenosis, cervical region; M54.12 Radiculopathy, cervical region; M40.202 Unspecified kyphosis, cervical region; F17.210 Nicotine dependence, cigarettes, uncomplicated; Z20.822 Contact with and (suspected) exposure to COVID-19; Z88.5 Allergy status to narcotic agent; Z71.3 Dietary counseling and surveillance; Z71.6 Tobacco abuse counseling; Z71.82 Exercise counseling
CPT/HCPCS: 22551; 22552 ×2; 22853 ×3; 20930; 81025; 87635; 72020; G0378 ×2; C1713 ×2; C1762 ×2; J2920; J0690 ×3; J2405; J1170 ×3

== ENCOUNTER → 2022-03-31 | Outpatient (CLI) | payer OTHER ==
--- NOTE | 2022-03-31 08:58 | CT ---
EXAMINATION TYPE: CT brain wo con DATE OF EXAM: 03/31/2022 COMPARISON: None HISTORY: 52-year-old female G4 5.9, Speech issues, TIA TECHNIQUE: Examination was done in axial plane without intravenous contrast. Coronal and sagittal r econstructions performed. CT DLP: 1082 mGycm Automated exposure control for dose reduction was used. FINDINGS: There is no evidence of acute intracranial hemorrhage, acute ischemic changes, mass, mass-effect, or extra-axial fluid collection. There is no effacement of cerebral sulci or basal subarachnoid cister ns. There is no hydrocephalus. There is no midline shift. Wild-white matter distinction is preserv ed. Partially empty sella incidentally noted. 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 Paranasal sinuses and mastoid air cells are well pneumatized. Orbits and globes are intact. 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 No acute intracranial abnormality seen.
--- NOTE | 2022-03-31 09:27 | US ---
EXAMINATION TYPE: US carotid duplex BILAT DATE OF EXAM: 03/31/2022 COMPARISON: None CLINICAL HISTORY: 52-year-old female G45.9 TIA. No HTN. No hx TIA. Patient states she had speech is sues. TECHNIQUE: Carotid duplex ultrasound examination. Indirect Doppler criteria was utilized. FINDINGS: EXAM MEASUREMENTS: RIGHT: Peak Systolic Velocity (PSV) cm/sec ----- Right CCA: 96.3 ----- Right ICA: 109.7 ----- Right ECA: 84.0 ICA/CCA ratio: 1.1 RIGHT: End Diastole cm/sec ----- Right CCA: 31.4 ----- Right ICA: 49.9 ----- Right ECA: 23.2 LEFT: Peak Systolic Velocity (PSV) cm/sec ----- Left CCA: 103.0 ----- Left ICA: 105.7 ----- Left ECA: 83.4 ICA/CCA ratio: 1.0 LEFT: End Diastole cm/sec ----- Left CCA: 38.2 ----- Left ICA: 48.8 ----- Left ECA: 24.1 VERTEBRALS (direction of flow): Right Vertebral: Antegrade Left Vertebral: Antegrade Rhythm: Normal ENGINEERING TEST MECHANIC NOTES: No significant velocity elevations, plaque, or wall thickening seen. IMPRESSION: No hemodynamically significant internal carotid artery stenosis on either side. Criteria for Assigning % of Stenosis / Diameter reduction (Estimation based on the indirect measurements of the internal carotid artery velocities (ICA PSV). 1. Normal (no stenosis)=ICA PSV < 125 cm/s: ratio < 2.0: ICA EDV<40 cm/s. 2. Less than 50% stenosis=ICA PSV < 125 cm/s: ratio < 2.0: ICA EDV<40 cm/s. 3. 50 to 69% stenosis=ICA PSV of 125 to 230 cm/s: ration 2.0 ? 4.0: ICA EDV 40-100 cm/s. 4. Greater than 70% stenosis to near occlusion= ICA PSV > 230 cm/s: ratio > 4.0: ICA EDV > 100 cm/s. 5. Near occlusion= ICA PSV velocities may be low or undetectable: variable ratio and ICA EDV. 6. Total occlusion=unable to detect flow.
== END | disposition home or self-care (01) ==
LOC: RADCTMAIN 08:23
PROVIDERS: ATTEND Family Medicine
DX: G45.9 Transient cerebral ischemic attack, unspecified (principal); Q04.8 Other specified congenital malformations of brain
CPT/HCPCS: 70450; 93880

== ENCOUNTER → 2022-12-17 | Outpatient (CLI) | payer OTHER ==
--- NOTE | 2022-12-17 15:41 | XR ---
EXAMINATION TYPE: XR tibia fibula LT DATE OF EXAM: 12/17/2022 3:02 PM INDICATION: Patient age:Female; 52 years old; Reason for study: M79.662; [facility]. COMPARISON: None TECHNIQUE: The left tibia/fibula was examined in AP and lateral projections. FINDINGS: No evidence of any acute osseous pathology, joint dislocation, or soft tissue swelling is n oted. Calcaneal Achilles enthesophyte. IMPRESSION: No evidence of acute fracture.
== END | disposition home or self-care (01) ==
LOC: RADXRMAIN 14:48
PROVIDERS: ATTEND Family Medicine
DX: M79.662 Pain in left lower leg (principal)

== ENCOUNTER → 2023-08-03 | Outpatient (CLI) | payer OTHER ==
--- NOTE | 2023-08-03 13:44 | XR ---
EXAMINATION TYPE: XR knee limited LT DATE OF EXAM: 08/03/2023 12:04 PM CLINICAL INDICATION:Female, 53 years old with history of M25.562 PAIN IN LEFT KNEE; [facility] COMPARISON: None. TECHNIQUE: XR knee limited LT; examined in Frontal, lateral and oblique projections. FINDINGS: No evidence of any acute osseous pathology, soft tissue swelling, or joint effusion is no neyda. Tricompartmental osteophyte formation involving the femoral condyles, tibial plateau and patella . Mild joint space narrowing. IMPRESSION: 1. No acute osseous pathology. 2. Mild tricompartmental osteoarthritic changes.
== END | disposition home or self-care (01) ==
LOC: RADXRMAIN 11:38
PROVIDERS: ATTEND Family Medicine
DX: M17.12 Unilateral primary osteoarthritis, left knee (principal)

== ENCOUNTER → 2023-09-06 | Outpatient (CLI) | payer OTHER ==
--- NOTE | 2023-09-06 08:44 | P.HPOB ---
History of Present Illness H&P Date: 09/06/23 Chief Complaint: The patient is here for her routine gynecologic exam and ma mmogram. This is a 53-year-old -0-1-6 with an LMP of August 2021. The patient is without gynecologic complaints and denies any postmenopausal bleeding. Her hot flashes are declining and are fairly mild. Review of Systems The patient has gained 22 pounds over the last year. She has stopped the weight loss medication that she was temporarily using and ended up gaining more weight back. She denies respiratory, cardiac, or G.I. problems. Past Medical History Past Medical History: GERD/Reflux Additional Past Medical History / Comment(s): kidney stones. Back problems. 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 History of Any Multi-Drug Resistant Organisms: None Reported Past Surgical History: No Surgical Hx Reported, Back Surgery Additional Past Surgical History / Comment(s): LITHOTRIPSY, CYSTOSCOPY, back surgery aug - disectomy and laminectomy. Colonoscopy 2016(next after 5yr). Past Anesthesia/Blood Transfusion Reactions: No Reported Reaction Additional Past Anesthesia/Blood Transfusion Reaction / Comment(s): no family problems w/anesthesia Past Psychological History: No Psychological Hx Reported Smoking Status: Former smoker Past Alcohol Use History: Occasional (2-3 drinks per month.) Additional Past Alcohol Use History / Comment(s): Smoked half a pack per day for many years. Quit smoking December 2021. Past Drug Use History: None Reported Additional History: She is . She has been with her boyfriend since 2004 and they live together. 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 - Past Family History Father Family Medical History: Cancer Additional Family Medical History / Comment(s): Colon cancer. Mother Family Medical History: Cancer Additional Family Medical History / Comment(s): of lung cancer. Half siblings Family Medical History: Hypertension Medications and Allergies Home Medications Medication Instructions Recorded Confirmed Type No Known Home Medications 09/06/23 09/06/23 History Allergies Allergy/AdvReac Type Severity Reaction Status Date / Time hydrocodone [From [place]] Allergy Dyspnea Verified 09/06/23 08:22 Exam Vital Signs Temp Pulse Resp BP Pulse Ox 09/06/23 08:23 98.1 F 76 17 124/87 97 Intake and Output 09/05/23 09/06/2309/05/24 22:59 06:59 14:59 Other: Weight 96.162 kg Height 5 feet 6 inches, weight 212 pounds, BMI 34.2. This is a well-developed well-nourished white female who is alert and oriented times 3 in no acute distress. HEENT: Within normal limits. NECK: Supple without mass or thyromegaly. CHEST AND LUNGS: Clear to auscultation. HEART: Regular rate and rhythm. BREASTS: Are without mass or discharge. AXILLARY EXAM: Negative for adenopathy. BACK: Negative for CVA tenderness. ABDOMEN: Soft, nontender, without palpable masses. PELVIC EXAM: Normal external genitalia with minimal atrophy. Cervix and vagina appear normal with minimal atrophy. There is no unusual discharge. There is no evidence of prolapse. The uterus is midposition, nongravid size and nontender. There are no palpable adnexal masses or tenderness. RECTAL EXAM: Rectovaginal exam is negative for mass or tenderness and is negative for occult blood. EXTREMITIES: Nontender. IMPRESSION: 1. 53-year-old menopausal female with normal gynecologic exam. 2. Weight gain over the past year. PLAN: 1. Pap smear was deferred since she had a negative Pap smear cotest on 06/15/2022. 2. Self breast awareness was discussed with the patient. We have also discussed symptoms associated with inflammatory breast cancer. 3. Screening mammogram will be done today. 4. Osteoporosis prevention was discussed. I have stressed the importance of adequate calcium, vitamin D and regular exercise. Recommended amounts of calcium and vitamin D were also discussed. 5. Weight control was discussed. I have stressed the importance of good nutrition, regular meals, adequate fiber, and regular exercise. 6. She is probably due for a colonoscopy since her last one was in 2017 and she does have a family history of colon cancer. She will arrange this with her PCP. 7. She was advised to return in one year for her annual well woman exam.
[2023-09-06 09:01] VITALS: BP 124/87; PULSE 76; RESP 17; TEMP 98.1
--- NOTE | 2023-09-07 08:22 | MM ---
Reason for Exam: Screening (asymptomatic). Last mammogram was performed 1 year(s) and 3 month(s) ago. Patient History: Menarche at age 16. First Full-Term at age 18. Postmenopausal. Patient has history of breast feeding. Risk Values: Pam 5 year model risk: 0.7%. NCI Lifetime model risk: 5.7%. Prior Study Comparison: 07/29/2016 Bilateral MG screening mammo w CAD - 2, [facility]. 06/15/2022 Bilateral MG screening mammo w [facility], [facility]. 06/18/2022 Left MG work up mamm w CAD , [facility]. Tissue Density: The breasts are heterogeneously dense, which may obscure small masses. Findings: Analyzed By CAD. No suspicious grouped calcifications. No architectural distortion. There is a vague density with obscured margins involving the central inner margin left breast. Overall Assessment: Incomplete: need additional imaging evaluation, BI-RAD 0 Management: Diagnostic Mammogram of the left breast. . Patient should continue monthly self-breast exams. A clinical breast exam by your physician is recommended on an annual basis. This exam should not preclude additional follow-up of suspicious palpable abnormalities. Note on Apm scores and lifetime risk: 1. A Pam score greater than 3% is considered moderate risk. If this is the case, consider specialist referral to assess eligibility for a risk reducing agent. 2. If overall lifetime risk for the development of breast cancer is 20% or higher, the patient may qualify for future screening with alternating mammogram and breast MRI. Electronically signed and approved by: Morris Del Castillo M.D. Radiologis
== END ==
LOC: WWCWWP 07:48
PROVIDERS: ATTEND Obstetrics & Gynecology
DX: Z01.419 Encounter for gynecological examination (general) (routine) without abnormal findings (principal); Z12.31 Encounter for screening mammogram for malignant neoplasm of breast; R63.5 Abnormal weight gain; Z78.0 Asymptomatic menopausal state; Z88.5 Allergy status to narcotic agent; Z87.891 Personal history of nicotine dependence
CPT/HCPCS: 77067

== ENCOUNTER → 2023-09-08 | Outpatient (CLI) | payer OTHER ==
--- NOTE | 2023-09-08 10:07 | MM ---
Reason for Exam: Additional evaluation requested from abnormal screening. Last screening mammogram was performed less than 1 month ago. Patient History: Menarche at age 16. First Full-Term at age 18. Postmenopausal. Patient has history of breast feeding. Risk Values: Pam 5 year model risk: 0.7%. NCI Lifetime model risk: 5.7%. Prior Study Comparison: 07/29/2016 Bilateral MG screening mammo w CAD - 2, [facility]. 06/15/2022 Bilateral MG screening mammo w [facility], [facility] 06/18/2022 Left MG work up mamm w CAD , [facility]. 09/06/2023 Bilateral MG screening mammo w [facility], [facility]. Tissue Density: Left: The breasts are heterogeneously dense, which may obscure small masses. Findings: Analyzed By CAD. There is a 9 mm isodense to low-density nodule approximately 9:00 position middle depth which appears more pronounced. Further ultrasound evaluation recommended. Overall Assessment: Incomplete: need additional imaging evaluation, BI-RAD 0 Management: Diagnostic Breast Ultrasound of the left breast. Electronically signed and approved by: Dian Sena M.D. Radiologist
--- NOTE | 2023-09-08 10:36 | USB ---
Reason for Exam: Follow-up at short interval from prior study. Patient History: Menarche at age 16. First Full-Term at age 18. Postmenopausal. Patient has history of breast feeding. Risk Values: Pam 5 year model risk: 0.7%. NCI Lifetime model risk: 5.7%. Technique: Method: Targeted. Patient Position: Supine. Prior Study Comparison: 06/15/2022 Bilateral MG screening mammo w CAD, [facility]. 06/18/2022 Left US breast workup limited LT, [facility]. 06/18/2022 Left MG work up mamm w CAD LT, [facility]. 09/06/2023 Bilateral MG screening mammo w CAD, [facility]. Findings: The lower inner quadrant of the left breast, the axilla of the left breast and the retroareolar of the left breast were scanned. Targeted ultrasound lateral left breast 8-10 o'clock including scanning of the subareolar region and axilla. The previously seen lesion at the 10:00 position cannot be identified. There is a tiny 6 mm cyst noted at 12:00. Scattered dense tissues are present. Short interval follow-up for the mammographic nodularity. Overall Assessment: Probably benign, BI-RAD 3 Management: Diagnostic Mammogram of the left breast in 6 months. A clinical breast exam by your physician is recommended on an annual basis and results should be correlated with mammographic findings. This exam should not preclude additional follow-up of suspicious palpable abnormalities. Results were given to the patient verbally at the time of exam. Electronically signed and approved by: Dian Sena M.D. Radiologist
== END | disposition home or self-care (01) ==
LOC: RADMAMWWP 09:13
PROVIDERS: ATTEND Obstetrics & Gynecology
DX: N60.02 Solitary cyst of left breast (principal); R92.332 Mammographic heterogeneous density, left breast; Z78.0 Asymptomatic menopausal state
CPT/HCPCS: 77061; 77065

== ENCOUNTER 2024-10-25 13:14 | Day surgery (SDC) | payer OTHER ==
[2024-10-24 11:58] VITALS: BMI 34.2
[~2024-10-25 13:14] MED LIST changes: -DEXAMETHASONE SOD PHOSPHATE 4 MG/ML 1 ML VIAL IV ONE; -HYDROmorphone 0.5 MG/0.5 ML SYRINGE IVP PRN; +LACTATED RINGERS 1,000 ML IV SCH; +LIDOCAINE 1% (10MG/ML) FOR IV START INTRADERMA PRN; -ONDANSETRON 4 MG/2 ML VIAL IVP ONE; -ceFAZolin 1,000 MG in SODIUM CHLORIDE 0.9% IRRIGATIO 1,000 ML IRRIGATION PRN
[2024-10-25] MEDS: IV FLUID CONTINUATION 1,000 ML IV ONE (13:49)
[2024-10-25 14:11] VITALS: TEMP 97.5
[2024-10-25] MEDS ORDERED: PROPOFOL 10 MG/ML 20 ML VIAL IV ONE (14:38)
--- NOTE | 2024-10-25 14:49 | P.GSHP ---
History of Present Illness H&P Date: 10/25/24 Chief Complaint: Colon cancer screening with history of colon cancer in father 54-year-old female here for colonoscopy. Last colonoscopy 7 years ago. Father had colon cancer. No bowel complaints. Past Medical History Past Medical History: GERD/Reflux Additional Past Medical History / Comment(s): kidney stones. Back problems. 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 CELIAC, History of Any Multi-Drug Resistant Organisms: None Reported Past Surgical History: Back Surgery Additional Past Surgical History / Comment(s): LITHOTRIPSY, CYSTOSCOPY, back surgery aug - disectomy and laminectomy. Colonoscopy 2017(next after 5yr). Past Anesthesia/Blood Transfusion Reactions: No Reported Reaction Additional Past Anesthesia/Blood Transfusion Reaction / Comment(s): no family problems w/anesthesia. NO HX BLOOD TRANSFUSION Smoking Status: Former smoker - Past Family History Father Family Medical History: Cancer Additional Family Medical History / Comment(s): Colon cancer. Mother Family Medical History: Cancer Additional Family Medical History / Comment(s): of lung cancer. Half siblings Family Medical History: Hypertension Medications and Allergies Home Medications Medication Instructions Recorded Confirmed Type No Known Home Medications 09/06/23 10/24/24 History Allergies Allergy/AdvReac Type Severity Reaction Status Date / Time hydrocodone [From [place]] Allergy Dyspnea Verified 10/24/24 11:38 Surgical - Exam Vital Signs Temp Pulse Resp BP Pulse Ox 97.5 F L 79 17 133/88 100 10/25/24 13:49 10/25/24 13:49 10/25/24 13:49 10/25/24 13:49 10/25/24 13:49 Physical exam: General: Well-developed, well-nourished HEENT: Normocephalic, sclerae nonicteric Abdomen: Nontender, nondistended Extremities: No edema Neuro: Alert and oriented Assessment and Plan (1) Colon cancer screening Narrative/Plan: Will proceed with colonoscopy at this time. Current Visit: Yes Status: Acute Code(s): Z12.11 - ENCOUNTER FOR SCREENING FOR MALIGNANT NEOPLASM OF COLON SNOMED Code(s): 313325185
--- NOTE | 2024-10-25 15:02 | P.PCN ---
Date of Procedure: 10/25/24 Procedure(s) Performed: PREOPERATIVE DIAGNOSIS: Family history of colon cancer POSTOPERATIVE DIAGNOSIS: Small sigmoid colon polyp, diverticulosis PROCEDURE: Colonoscopy with snare polypectomy ANESTHESIA: MAC SURGEON: Raheem Howell M.D. SPECIMENS: None ENDOSCOPIC PROCEDURE: The patient was placed on the endoscopy table in the left decubitus position. The Olympus colonoscope was inserted into the anus and passed under direct visualization to the base of the cecum. The appendiceal orifice was visualized. From that point the scope was slowly withdrawn inspecting all surfaces carefully. There were no neoplastic inflammatory or polypoid lesions throughout the cecum, ascending, transverse, and descending colon. In the sigmoid a small polyp was seen and removed using the snare with cautery technique. There was no visible specimen in the container. This appeared likely hyperplastic. The remainder of the sigmoid and rectum was normal. There was mild sigmoid diverticulosis. Digital rectal examination was normal. The patient was taken to the recovery room in stable condition per anesthesia guidelines. RECOMMENDATIONS: Resume diet. No specimen today. Repeat colonoscopy 5 years.
[2024-10-25 15:25] VITALS: BP 94/56; PULSE 73; RESP 16
== END 2024-10-25 15:45 | disposition home or self-care (01) ==
LOC: ORWHC2ENDO 13:14
PROVIDERS: ATTEND Surgery
DX: Z12.11 Encounter for screening for malignant neoplasm of colon (principal); K63.5 Polyp of colon; K57.30 Diverticulosis of large intestine without perforation or abscess without bleeding; K90.0 Celiac disease; K21.9 Gastro-esophageal reflux disease without esophagitis; Z87.891 Personal history of nicotine dependence; Z80.0 Family history of malignant neoplasm of digestive organs; Z88.5 Allergy status to narcotic agent
CPT/HCPCS: 45385; J2704